=== PATIENT | male | born 1985 | race African-American/Black ===

== ENCOUNTER 2019-02-20 16:31 | Outpatient (CLI) | payer OTHER ==
[2019-02-20 16:49] LABS: BASOPHILS # (AUTO) 0.1 10^3/uL (0.0-0.1); BASOPHILS % (AUTO) 0.9 %; EOSINOPHILS # (AUTO) 0.2 10^3/uL (0.0-0.7); EOSINOPHILS % (AUTO) 3.3 %; HGB - HEMOGLOBIN 16.4 g/dL (14.0-18.0); LYMPHOCYTES # (AUTO) 2.8 10^3/uL (1.5-3.5); LYMPHOCYTES % (AUTO) 50.8 %; MEAN CORPUSCULAR HEMOGLOBIN 26.6 pg (27.0-31.0); MEAN CORPUSCULAR HGB CONC 33.5 g/dL (32.0-36.0); MEAN CORPUSCULAR VOLUME 79.5 fL (80.0-94.0); MEAN PLATELET VOLUME 9.8 fL (7.4-11.4); MONOCYTES # (AUTO) 0.4 10^3/uL (0.0-1.0); MONOCYTES % (AUTO) 7.2 %; NEUTROPHILS # (AUTO) 2.1 10^3/uL (1.5-6.6); NEUTROPHILS % (AUTO) 37.6 %; PLT - PLATELET COUNT 208 10^3/uL (130-450); RED BLOOD COUNT 6.16 10^6/uL (4.70-6.10); RED CELL DISTRIBUTION WIDTH 12.8 % (12.0-15.0); WHITE BLOOD COUNT 5.5 x10^3/uL (4.8-10.8)
[2019-02-20 17:06] LABS: BUN - BLOOD UREA NITROGEN 10 mg/dL (6-20); CALCIUM 9.5 mg/dL (8.5-10.3); CARBON DIOXIDE - CO2 23 mmol/L (21-32); CHLORIDE 99 mmol/L (101-111); CHOL/HDL RATIO 7.7 (<5.0); CHOLESTEROL 207 mg/dL; CREATININE 0.9 mg/dL (0.6-1.2); GFR - MDRD 117 (>89); GLUCOSE 261 mg/dL (70-100); HDL CHOLESTEROL 27 mg/dL; SODIUM 134 mmol/L (135-145)
[2019-02-20 17:27] LABS: LDL CHOLESTEROL,DIRECT 84 mg/dL; LDLD/HDL RATIO 3.1 (<3.6)
== END 2019-02-20 16:32 | disposition home or self-care (01) ==
LOC: LAB 16:31
PROVIDERS: ATTEND Physician Assistant Medical
DX: Z00.00 Encounter for general adult medical examination without abnormal findings (principal)
CPT/HCPCS: 80048; 80061; 83721; 84443; 85025

== ENCOUNTER 2019-08-07 09:00 | Outpatient (CLI) | payer OTHER ==
[2019-08-07 18:53] LABS: BASOPHILS # (AUTO) 0.1 10^3/uL (0.0-0.1); BASOPHILS % (AUTO) 0.9 %; EOSINOPHILS # (AUTO) 0.1 10^3/uL (0.0-0.7); EOSINOPHILS % (AUTO) 1.7 %; HGB - HEMOGLOBIN 16.3 g/dL (14.0-18.0); LYMPHOCYTES # (AUTO) 2.8 10^3/uL (1.5-3.5); MEAN CORPUSCULAR HEMOGLOBIN 26.6 pg (27.0-31.0); MEAN CORPUSCULAR HGB CONC 33.5 g/dL (32.0-36.0); MEAN CORPUSCULAR VOLUME 79.4 fL (80.0-94.0); MEAN PLATELET VOLUME 10.4 fL (7.4-11.4); MONOCYTES # (AUTO) 0.4 10^3/uL (0.0-1.0); NEUTROPHILS # (AUTO) 2.5 10^3/uL (1.5-6.6); NEUTROPHILS % (AUTO) 43.2 %; PLT - PLATELET COUNT 208 10^3/uL (130-450); RED BLOOD COUNT 6.12 10^6/uL (4.70-6.10); RED CELL DISTRIBUTION WIDTH 13.4 % (12.0-15.0); WHITE BLOOD COUNT 5.9 x10^3/uL (4.8-10.8)
[2019-08-07 19:07] LABS: ALBUMIN 4.4 g/dL (3.2-5.5); ALBUMIN/GLOBULIN RATIO 1.3 (1.0-2.2); BILIRUBIN,TOTAL 0.7 mg/dL (0.2-1.0); CALCIUM 9.6 mg/dL (8.5-10.3); HB2 TOTAL 15.9 g/dL; HEMOGLOBIN A1C 2.41 g/dL; TOTAL PROTEIN 7.9 g/dL (6.7-8.2)
== END 2019-08-07 23:59 | disposition home or self-care (01) ==
LOC: LAB.N 09:00
PROVIDERS: ATTEND Physician Assistant Medical
DX: R73.9 Hyperglycemia, unspecified (principal)
CPT/HCPCS: 36415; 80053; 83036; 84443; 85025

== ENCOUNTER 2019-08-13 10:28 | Outpatient (CLI) | payer OTHER ==
[2019-08-13 13:11] LABS: CHOLESTEROL 312 mg/dL; HDL CHOLESTEROL 26 mg/dL
[2019-08-13 13:48] LABS: LDL CHOLESTEROL,DIRECT 29 mg/dL; LDLD/HDL RATIO 1.1 (<3.6)
== END 2019-08-13 23:59 | disposition home or self-care (01) ==
LOC: LAB.N 10:28
PROVIDERS: ATTEND Physician Assistant Medical
DX: E11.9 Type 2 diabetes mellitus without complications (principal)
CPT/HCPCS: 36415; 80061; 83721

== ENCOUNTER 2020-11-23 08:00 | Outpatient (CLI) | payer OTHER ==
[2020-11-23 12:59] LABS: BASOPHILS % (AUTO) 0.7 %; EOSINOPHILS # (AUTO) 0.1 10^3/uL (0.0-0.7); EOSINOPHILS % (AUTO) 1.5 %; HGB - HEMOGLOBIN 15.5 g/dL (14.0-18.0); LYMPHOCYTES # (AUTO) 2.9 10^3/uL (1.5-3.5); LYMPHOCYTES % (AUTO) 49.4 %; MEAN CORPUSCULAR HEMOGLOBIN 26.9 pg (27.0-31.0); MEAN CORPUSCULAR HGB CONC 33.7 g/dL (32.0-36.0); MEAN CORPUSCULAR VOLUME 79.7 fL (80.0-94.0); MONOCYTES # (AUTO) 0.4 10^3/uL (0.0-1.0); MONOCYTES % (AUTO) 6.3 %; NEUTROPHILS # (AUTO) 2.4 10^3/uL (1.5-6.6); NEUTROPHILS % (AUTO) 41.9 %; PLT - PLATELET COUNT 198 10^3/uL (130-450); RED BLOOD COUNT 5.77 10^6/uL (4.70-6.10); RED CELL DISTRIBUTION WIDTH 13.2 % (12.0-15.0); WHITE BLOOD COUNT 5.8 x10^3/uL (4.8-10.8)
[2020-11-23 13:07] LABS: ESTIMATED AVERAGE GLUCOSE 361 mg/dL (70-100); HEMOGLOBIN A1c% 14.2 % (4.27-6.07)
[2020-11-23 13:17] LABS: CREATININE,URINE 112.6 mg/dL; MICROALBUM/CREATININE RATIO,UR 45.3 ug/mg (<30.0); MICROALBUMIN,URINE 5.1 mg/dL (0-300.0)
[2020-11-23 13:22] LABS: THYROID STIMULATING HORMONE 1.74 uIU/mL (0.34-5.60)
[2020-11-23 13:45] LABS: ALBUMIN 4.1 g/dL (3.2-5.5); ALBUMIN/GLOBULIN RATIO 1.2 (1.0-2.2); ALKALINE PHOSPHATASE 63 IU/L (42-121); ALT ALANINE AMINOTRANSFERASE 18 IU/L (10-60); AST ASPARTATE AMINOTRANSFERASE 13 IU/L (10-42); BILIRUBIN,TOTAL 1.1 mg/dL (0.2-1.0); BUN - BLOOD UREA NITROGEN 17 mg/dL (6-20); CALCIUM 9.3 mg/dL (8.5-10.3); CARBON DIOXIDE - CO2 22 mmol/L (21-32); CHLORIDE 98 mmol/L (101-111); CHOL/HDL RATIO 9.6 (<5.0); CHOLESTEROL 258 mg/dL; GFR - MDRD 102 (>89); GLUCOSE 264 mg/dL (70-100); HDL CHOLESTEROL 27 mg/dL; POTASSIUM 3.7 mmol/L (3.5-5.0); SODIUM 132 mmol/L (135-145); TOTAL PROTEIN 7.5 g/dL (6.7-8.2); TRIGLYCERIDES 1032 mg/dL
[2020-11-23 15:08] LABS: LDL CHOLESTEROL,DIRECT 66 mg/dL; LDLD/HDL RATIO 2.4 (<3.6)
== END 2020-11-23 23:59 | disposition home or self-care (01) ==
LOC: LAB.WCP 08:00
PROVIDERS: ATTEND Physician Assistant Medical
DX: I10 Essential (primary) hypertension (principal); E78.5 Hyperlipidemia, unspecified; E78.1 Pure hyperglyceridemia; E11.9 Type 2 diabetes mellitus without complications
CPT/HCPCS: 36415; 80053; 80061; 82043; 82570; 83036; 83721; 84443; 85025

== ENCOUNTER 2021-02-24 08:00 | Outpatient (CLI) | payer OTHER ==
[2021-02-24 12:34] LABS: ESTIMATED AVERAGE GLUCOSE 309 mg/dL (70-100); HEMOGLOBIN A1c% 12.4 % (4.27-6.07)
[2021-02-24 12:42] LABS: ALBUMIN 4.3 g/dL (3.2-5.5); ALBUMIN/GLOBULIN RATIO 1.2 (1.0-2.2); ALKALINE PHOSPHATASE 62 IU/L (42-121); ALT ALANINE AMINOTRANSFERASE 15 IU/L (10-60); AST ASPARTATE AMINOTRANSFERASE 12 IU/L (10-42); BILIRUBIN,TOTAL 0.9 mg/dL (0.2-1.0); BUN - BLOOD UREA NITROGEN 13 mg/dL (6-20); CALCIUM 9.6 mg/dL (8.5-10.3); CARBON DIOXIDE - CO2 25 mmol/L (21-32); CHLORIDE 99 mmol/L (101-111); CHOL/HDL RATIO 8.4 (<5.0); CHOLESTEROL 228 mg/dL; GFR - MDRD 102 (>89); GLUCOSE 242 mg/dL (70-100); HDL CHOLESTEROL 27 mg/dL; POTASSIUM 3.8 mmol/L (3.5-5.0); SODIUM 134 mmol/L (135-145); TOTAL PROTEIN 7.9 g/dL (6.7-8.2); TRIGLYCERIDES 993 mg/dL
[2021-02-24 13:06] LABS: LDL CHOLESTEROL,DIRECT 63 mg/dL; LDLD/HDL RATIO 2.3 (<3.6)
== END 2021-02-24 23:59 | disposition home or self-care (01) ==
LOC: LAB.WCP 08:00
PROVIDERS: ATTEND Physician Assistant Medical
DX: E11.8 Type 2 diabetes mellitus with unspecified complications (principal)
CPT/HCPCS: 36415; 80053; 80061; 83036; 83721

== ENCOUNTER 2021-03-03 08:00 | Outpatient (CLI) | payer OTHER ==
[2021-03-04 14:47] LABS: HIV AG/AB 4TH GEN NON-REACTIVE (NON-REACTIVE)
[2021-03-05 12:11] LABS: HSV 1 IGG TYPE SPECIFIC AB <0.90 index; HSV 2 IGG TYPE SPECIFIC AB <0.90 index
== END 2021-03-03 23:59 | disposition home or self-care (01) ==
LOC: LAB.WCP 08:00
PROVIDERS: ATTEND Physician Assistant Medical
DX: Z20.2 Contact with and (suspected) exposure to infections with a predominantly sexual mode of transmission (principal)
CPT/HCPCS: 81599; 86592; 86695; 86696; 87070; 87077; 87205; 87255; 87389; 87491; 87529; 87591; 87661

== ENCOUNTER 2021-03-04 08:00 | Outpatient (CLI) | payer OTHER ==
[2021-03-04 23:56] LABS: CHLAMYDIA TRACHOMATIS DNA NEGATIVE (NEGATIVE); NEISSERIA GONORRHOEAE DNA NEGATIVE (NEGATIVE)
== END 2021-03-04 23:59 | disposition home or self-care (01) ==
LOC: LAB.WCP 08:00
PROVIDERS: ATTEND Physician Assistant Medical
DX: Z20.2 Contact with and (suspected) exposure to infections with a predominantly sexual mode of transmission (principal)
CPT/HCPCS: 87491; 87591; 87661

== ENCOUNTER 2021-04-15 08:00 | Outpatient (CLI) | payer OTHER | END 2021-04-15 23:59 | disposition home or self-care (01) | LOC: LAB.WCP 08:00 | PROVIDERS: ATTEND Physician Assistant Medical | DX: Z20.2 Contact with and (suspected) exposure to infections with a predominantly sexual mode of transmission (principal) | CPT/HCPCS: 81599; 87255 ==

== ENCOUNTER 2021-06-01 09:00 | Outpatient (CLI) | payer OTHER ==
[2021-06-01 12:39] LABS: ESTIMATED AVERAGE GLUCOSE 358 mg/dL (70-100); HEMOGLOBIN A1c% 14.1 % (4.27-6.07)
[2021-06-01 12:46] LABS: ALBUMIN 4.1 g/dL (3.2-5.5); ALBUMIN/GLOBULIN RATIO 1.2 (1.0-2.2); ALKALINE PHOSPHATASE 82 IU/L (42-121); ALT ALANINE AMINOTRANSFERASE 17 IU/L (10-60); AST ASPARTATE AMINOTRANSFERASE 15 IU/L (10-42); BILIRUBIN,TOTAL 0.3 mg/dL (0.2-1.0); BUN - BLOOD UREA NITROGEN 18 mg/dL (6-20); CALCIUM 9.9 mg/dL (8.5-10.3); CARBON DIOXIDE - CO2 24 mmol/L (21-32); CHLORIDE 97 mmol/L (101-111); CHOL/HDL RATIO 7.8 (<5.0); CHOLESTEROL 217 mg/dL; CREATININE 1.1 mg/dL (0.6-1.2); GFR - MDRD 91 (>89); HDL CHOLESTEROL 28 mg/dL; POTASSIUM 4.5 mmol/L (3.5-5.0); SODIUM 131 mmol/L (135-145); TOTAL PROTEIN 7.6 g/dL (6.7-8.2); TRIGLYCERIDES 1230 mg/dL
[2021-06-01 12:49] LABS: GLUCOSE 597 mg/dL (70-100)
[2021-06-01 13:36] LABS: LDL CHOLESTEROL,DIRECT 69 mg/dL; LDLD/HDL RATIO 2.5 (<3.6)
== END 2021-06-01 23:59 | disposition home or self-care (01) ==
LOC: LAB.WCP 09:00
PROVIDERS: ATTEND Physician Assistant Medical
DX: E11.9 Type 2 diabetes mellitus without complications (principal)
CPT/HCPCS: 36415; 80053; 80061; 83036; 83721